=== PATIENT | male | born 1950 | race Caucasian/White ===

== ENCOUNTER → 2018-05-29 09:06 | Outpatient (BNVA) | payer MEDICARE, OTHER, SELFPAY | PROVIDERS: Visit Provider Orthopaedic Surgery | DX: M16.11 Unilateral primary osteoarthritis, right hip (principal); M25.551 Pain in right hip; Z96.651 Presence of right artificial knee joint; I10 Essential (primary) hypertension | CPT/HCPCS: 99203; 99242 ==

== ENCOUNTER 2018-09-25 08:14 | Outpatient (CLI) | payer MEDICARE, OTHER, SELFPAY ==
[2018-09-25 10:34] LABS: Abs Immature Grans 0.01 k/cumm (0.0-0.09); Absolute Basophil Count 0.05 k/cumm (0.0-0.2); Absolute Eosinophil Count 0.23 k/cumm (0.0-0.7); Absolute Lymphocyte Count 1.59 k/cumm (1.2-3.4); Absolute Monocyte Count 0.64 k/cumm (0.11-0.7); Absolute Neutrophil Count 3.97 k/cumm (1.2-6.7); Basophils % 0.8; Eosinophils % 3.5; HCT 41.6 % (40.0-50.0); HGB 13.8 g/dL (13.5-17.5); Immature Grans % 0.2; Lymphocytes % 24.5; Mean Corp. HGB Concentration 33.2 g/dL (32.0-36.0); Mean Corpuscular Hemoglobin 31.7 pg (27.0-33.0); Mean Corpuscular Volume 95.4 fL (80-95); Mean Platelet Volume 10.5 fL (8.0-11.0); Monocytes % 9.9; Neutrophils % 61.1; Platelet Count 322 x1000/uL (130-400); RBC 4.36 m/cumm (4.50-6.00); RBC Distribution Width 14.4 % (11.8-14.1); White Blood Cell Count 6.49 k/cumm (4.4-10.8)
== END 2018-09-25 08:34 ==
PROVIDERS: PCP Internal Medicine; Visit Provider Orthopaedic Surgery
DX: M25.551 Pain in right hip (principal); M16.11 Unilateral primary osteoarthritis, right hip; Z01.818 Encounter for other preprocedural examination
CPT/HCPCS: 86850; 86900; 86901; 85025

== ENCOUNTER 2018-09-30 06:13 | Inpatient (IN) | payer MEDICARE, OTHER, SELFPAY ==
--- NOTE | 2018-09-26 15:23 | W.PREOPHP ---
Date of service: 09/25/18 Assessment and Plan (1) Degenerative joint disease of right hip: Current visit: Yes Status: Acute right total hip arthroplasty the anatomy , operative procedure, and possible postop complications which we expect to be none are reviewed as well as measures to eliminate any complication chance are reviewed. all questions are answered to the satisfaction of the patient.typical postop course is also reviewed. Qualifiers: Osteoarthritis type: primary Qualified Code(s): M16.11 - Unilateral primary osteoarthritis, right hip History of Present Illness Narrative: shiv is a 68-year-old male who relates over a 1 year history of achy discomfort in his right posterior buttocks and groin with difficulty putting on his socks and shoes and inability to clip his toenails along with an episodic limp and sleep difficulty that has escalated over the past several months. He has had an x-ray done over at [facility] which were remarkable for advanced OA with loss of femoral head acetabular joint space along with periarticular osteophytes. He had femoral head cystic changes and subchondral sclerotic changes. He was seen in the office by Dr. Ahn who discussed with Shiv the only solution for long-term pain relief was a total hip replacement. In the interim from Shiv's initial Dr. Ahn visit he developed right leg pain and numbness prompting a referral down to Dr. Pelaez in [facility] where back surgery was done consisting to what sounds like a back fusion with improvement in his leg pain but persistence of the plantar numbness and tingling. Pertinent Surgical Information Denies previous medical history of: stroke, TIA, [place], use of sublingual nitroglycerin, seizures, diabetes, thyroid disease, sleep apnea, liver disease, hepatitis, hematologic disorders Denies previous complications from surgery or anesthesic agents with respect to high fever, prolonged vomiting and difficulty waking up Review of Systems Review of Systems All systems reviewed & are unremarkable except as noted in HPI and below Constitutional Reports system reviewed and no additional complaints, except as docu Eyes Reports system reviewed and no additional complaints, except as docu and Reports other Gastrointestinal Reports system reviewed and no additional complaints, except as docu Genitourinary Reports urinary frequency Comments: secondary to diurectic use Musculoskeletal Reports as per HPI Neurologic Reports as per HPI Psychiatric Reports system reviewed and no additional complaints, except as docu PFSH Medical History Degenerative joint disease of right hip (Acute) History of gastroesophageal reflux (GERD) (Chronic) Hypertension (Chronic) Surgical History History of tonsillectomy and adenoidectomy (Resolved) H/O lumbosacral spine surgery (Resolved) Hx of appendectomy (Resolved) History of total right knee replacement (TKR) (Inactive) Social History adopted: No caregiver/support person: No foster care: No household members: none marital status: single lives independently: Yes alf: No current occupational status: retired current occupational exposures/hazards: No pets and animals: No Smoking/Tobacco Use Status: Never Meds Home Medications Medication Instructions Recorded Confirmed Type amlodipine 5 mg tablet 5 mg PO DAILY 05/29/18 09/25/18 History hydrochlorothiazide 25 mg tablet 25 mg PO DAILY 05/29/18 09/25/18 History lisinopril 20 mg tablet 20 mg PO DAILY 05/29/18 09/25/18 History omeprazole 40 mg capsule,delayed 40 mg PO DAILY 05/29/18 09/25/18 History release Cbd 50 ml PO DAILY 09/25/18 History Allergies Allergy/AdvReac Type Severity Reaction Status Date / Time No Known Allergies Allergy Verified 05/29/18 09:19 Exam Const General: cooperative HENMA Throat: posterior oropharynx normal Eyes General: appearance normal, both eyes and all related structures Conjunctivae: conjunctivae normal Sclera: sclerae normal Neck Neck: no JVD Carotids: normal carotid upstroke and no bruits Resp Effort & Inspection: normal respiratory effort and able to speak in complete sentences Auscultation: clear to auscultation bilaterally, no rales, no rhonchi and no wheezes Cardio Rate: regular rate Heart Sounds: S1 normal, S2 normal and no murmurs Bruits: no abdominal aortic bruits Pulses: normal peripheral pulses Other: No pulsatile mass noted with palpation over the abdominal aorta GI Palpation: soft and no hepatosplenomegaly Auscultation: normal bowel sounds General: No CVA tenderness Extrem General: no pedal edema Other: Normal sensation to light touch No web space cracks or splits noted hip flexion few degrees shy of 90 degrees with a external rotation contracture. abduction very limited before pelvic rocking occurs Results Labs cbc normal with h and h 13.8/41.6 and normal platelets at 322k
--- NOTE | 2018-09-26 16:47 | HPE_ITS ---
Date of service: 09/25/18 Assessment and Plan (1) Degenerative joint disease of right hip: Current visit: Yes Status: Acute right total hip arthroplasty the anatomy , operative procedure, and possible postop complications which we expect to be none are reviewed as well as measures to eliminate any complication chance are reviewed. all questions are answered to the satisfaction of the patient.typical postop course is also reviewed. Qualifiers: Osteoarthritis type: primary Qualified Code(s): M16.11 - Unilateral primary osteoarthritis, right hip History of Present Illness Narrative: shiv is a 68-year-old male who relates over a 1 year history of achy discomfort in his right posterior buttocks and groin with difficulty putting on his socks and shoes and inability to clip his toenails along with an episodic limp and sleep difficulty that has escalated over the past several months. He has had an x-ray done over at [facility] which were remarkable for advanced OA with loss of femoral head acetabular joint space along with periarticular osteophytes. He had femoral head cystic changes and subchondral sclerotic changes. He was seen in the office by Dr. Ahn who discussed with Shiv the only solution for long-term pain relief was a total hip replacement. In the interim from Shiv's initial Dr. Ahn visit he developed right leg pain and numbness prompting a referral down to Dr. Pelaez in [facility] where back surgery was done consisting to what sounds like a back fusion with improvement in his leg pain but persistence of the plantar numbness and tingling. Pertinent Surgical Information Denies previous medical history of: stroke, TIA, [place], use of sublingual nitroglycerin, seizures, diabetes, thyroid disease, sleep apnea, liver disease, hepatitis, hematologic disorders Denies previous complications from surgery or anesthesic agents with respect to high fever, prolonged vomiting and difficulty waking up Review of Systems Review of Systems All systems reviewed & are unremarkable except as noted in HPI and below Constitutional Reports system reviewed and no additional complaints, except as docu Eyes Reports system reviewed and no additional complaints, except as docu and Reports other Gastrointestinal Reports system reviewed and no additional complaints, except as docu Genitourinary Reports urinary frequency Comments: secondary to diurectic use Musculoskeletal Reports as per HPI Neurologic Reports as per HPI Psychiatric Reports system reviewed and no additional complaints, except as docu PFSH Medical History Degenerative joint disease of right hip (Acute) History of gastroesophageal reflux (GERD) (Chronic) Hypertension (Chronic) Surgical History History of tonsillectomy and adenoidectomy (Resolved) H/O lumbosacral spine surgery (Resolved) Hx of appendectomy (Resolved) History of total right knee replacement (TKR) (Inactive) Social History adopted: No caregiver/support person: No foster care: No household members: none marital status: single lives independently: Yes long term: No current occupational status: retired current occupational exposures/hazards: No pets and animals: No Smoking/Tobacco Use Status: Never Meds Home Medications Medication Instructions Recorded Confirmed Type amlodipine 5 mg tablet 5 mg PO DAILY 05/29/18 09/25/18 History hydrochlorothiazide 25 mg tablet 25 mg PO DAILY 05/29/18 09/25/18 History lisinopril 20 mg tablet 20 mg PO DAILY 05/29/18 09/25/18 History omeprazole 40 mg capsule,delayed 40 mg PO DAILY 05/29/18 09/25/18 History release Cbd 50 ml PO DAILY 09/25/18 History Allergies Allergy/AdvReac Type Severity Reaction Status Date / Time No Known Allergies Allergy Verified 05/29/18 09:19 Exam Const General: cooperative HENMD Throat: posterior oropharynx normal Eyes General: appearance normal, both eyes and all related structures Conjunctivae: conjunctivae normal Sclera: sclerae normal Neck Neck: no JVD Carotids: normal carotid upstroke and no bruits Resp Effort & Inspection: normal respiratory effort and able to speak in complete sentences Auscultation: clear to auscultation bilaterally, no rales, no rhonchi and no wheezes Cardio Rate: regular rate Heart Sounds: S1 normal, S2 normal and no murmurs Bruits: no abdominal aortic bruits Pulses: normal peripheral pulses Other: No pulsatile mass noted with palpation over the abdominal aorta GI Palpation: soft and no hepatosplenomegaly Auscultation: normal bowel sounds General: No CVA tenderness Extrem General: no pedal edema Other: Normal sensation to light touch No web space cracks or splits noted hip flexion few degrees shy of 90 degrees with a external rotation contracture. abduction very limited before pelvic rocking occurs Results Labs cbc normal with h and h 13.8/41.6 and normal platelets at 322k
[2018-09-30] VITALS (14 sets, daily range): BP systolic 101–137; BP diastolic 62–90; PULSE 53–68; RESP 13–29; TEMP 36–36.7; O2SAT 95–98
[2018-09-30] MEDS: Lactated Ringers 1,000 ML 80 ML IV ×2 (06:45→11:02)
--- NOTE | 2018-09-30 07:22 | DI.RAD_ITS ---
SYMPTOM/DIAGNOSIS: DJD RIGHT HIP, PORTABLE IN OR. PORTABLE PELVIS: The exam was performed intraoperatively. Hard copy image shows placement of components of a right hip prosthesis.
[2018-09-30] MEDS: fentaNYL 100 MCG/2 ML VIAL IVP ×2 (10:20→10:38)
--- NOTE | 2018-09-30 10:20 | DI.RAD_ITS ---
SYMPTOM/DIAGNOSIS: CHECK POSITION OF THR COMPONENTS IN E.R. PORTABLE PELVIS: Comparison is made with the exam performed earlier the same day. The patient is status post placement of a total right hip prosthesis. The components appear well aligned. Skin nataliia are seen.
[2018-09-30] MEDS: HYDROmorphone 2 MG/ML VIAL IVP ×3 (10:30→10:55)
[2018-09-30] MEDS: oxyCODONE-CR 10 MG TABCR PO ×2 (11:28→23:49)
[2018-09-30] MEDS: Acetaminophen 325 MG TAB 650 MG PO ×2 (11:28→16:18)
[2018-09-30] MEDS: HYDROcodone 5/Acetaminophen 325 TAB PO ×2 (11:50→18:39)
[2018-09-30] MEDS: POTASSIUM CHLORIDE/0.9% NACL 1,000 ML 125 MEQ IV (12:49)
[2018-09-30] MEDS: Docusate Sodium 100 MG CAP PO ×2 (13:11→19:30)
[2018-09-30] MEDS: Ketorolac 30 MG/ML VIAL IVP ×2 (13:11→19:26)
--- NOTE | 2018-09-30 16:01 | PT.INIE ---
Date of service: 09/30/18 Time of Service: 15:30 PT Notes Inpatient Physical Therapy Evaluation Date: 09/30/18 Referring Doctor: Dr. Ahn PT Orders: PT CONSULT: mobilize post-op right SHEA. Get OOB ambulating in room this afternoon. WBAT RLE. Precautions: Fall, posterior hip precautions Patient Profile/Admitting Diagnosis: Patient admitted 09/30/2018 after right SHEA performed this morning. PMHX: Recent spinal surgery (06/2018) with persistent paresthesias in bilateral feet; status post right TKR Social History/Home Situation: Patient lives independently in a private home in [place], [place]. He plans to stay with a friend here in [facility] while he rehabilitates. States that his friend has 12 steps to enter the home, then lives on a single level. He reports that he utilized a straight cane at baseline. Equipment Owned/DME: Straight cane Subjective: Giovany states that he is quite nervous about getting up out of bed. States that he feels groggy, and is unsure how he is going to be able to move given the recent hip replacement on top of his chronic issues. Objective: General Observation: Resting in bed with IV in right upper extremity, Anderson catheter Mental Status: A and O x3 Pain: Well managed ROM: Right Upper Extremity: WFL Left Upper Extremity: WFL Right Lower Extremity: Hip flexion functionally allows 80 degrees, otherwise not assessed. Knee motion allows at least 0-90 degrees. Left Lower Extremity: WFL Strength: Right Upper Extremity: Shoulder flexion 4+/5. Triceps 4+/5. Left Upper Extremity: Shoulder flexion 4+/5. Triceps 4+/5. Right Lower Extremity: Quads 3/5. Ankle dorsiflexion 5/5. EHL 5/5. Left Lower Extremity: Quads 5/5. Ankle dorsiflexion 5/5. EHL 5/5. Sensation: Intact to light touch through the plantar aspect Bed Mobility/Transfers: Supine to sit: Min assist with HOB at 30 degrees Sit to supine: Supervision with HOB at 30 degrees Sit to stand: Min assist Stand to sit: Min assist Gait: Patient ambulates 5 feet x2 with FW W, WBAT, CG. Balance: Static Sitting: Good Dynamic Sitting: Good Static Standing: Fair Dynamic Standing:Fair Special Tests: Mobility Limitations Standardized Measure [facility]-P[facility] 6 clicks Basic Mobility Inpatient Short Form: Raw Score: 17 standardized Score: 42.13 CMS Score: 51% CMS Modifier: CK Informed Consent/Education: Patient instructed in purpose of PT consult and plan of care. Assessment: Patient is a 68 year old male referred to physical therapy services with the diagnosis of 1 days status post right SHEA. Patient presents with clinical signs and symptoms consistent with postoperative status, as demonstrated by the following impairment level findings: 1. Decreased right lower extremity range of motion 2. Decreased right lower extremity strength 3. Decreased activity tolerance 4. Range of motion restrictions based on postoperative precautions Impairments are contributing to the following functional limitations: 1. Decreased activity tolerance 2. Decreased independence with bed mobility 3. Decreased independence with transfers 4. Unable to manage stairs 5. Unable to manage community distance ambulation [facility] score 51% deficit. Patient is assessed as a Moderate 32962 complexity based on the following: History: Patient is a 68-year-old male 1 day postop right SHEA. His condition is impacted by chronic issues including bilateral knee OA, status post right TKA; recent spinal surgery with bilateral lower extremity paresthesias; [place] Examination: Functional limitations as noted above Presentation: Evolving Decision Making: Moderate complexity Goals: Goals X1 week 1. Supine-Sit: Supervision 2. Sit-Supine : Supervision 3. Sit-Stand : Supervision 4. Stand-Sit: Supervision 5. Bed-Chair : Supervision with FWW 6. Chair-Bed: Supervision with FWW 7. Gait : Supervision with FWW x 50' 8. Stairs : Patient able to a send and descend 12 steps with bilateral upper extremity support to rail and supervision only Plan of Care/Treatment Plan: 1-2x/day, 7 days/week x 1 week. Plan of care has been reviewed with the [facility] providing the service under Physical Therapy direction. Initiate Physical Therapy intervention for strengthening, bed mobility, transfers, gait, stairs, balance training, use of assistive device. DISCHARGE RECOMMENDATIONS: Home with assistance from friend, will require FWW at time of discharge TREATMENT CODE/TIME: 35 minutes (78053) G Codes in the area mobility of walking and moving around: current status [id number] CK; projected status GP [id number]. Discharge status (if discharging) GP [id number] CK.
--- NOTE | 2018-09-30 16:11 | IN_ITS ---
Date of service: 09/30/18 Time of Service: 15:30 PT Notes Inpatient Physical Therapy Evaluation Date: 09/30/18 Referring Doctor: Dr. Ahn PT Orders: PT CONSULT: mobilize post-op right SHEA. Get OOB ambulating in room this afternoon. WBAT RLE. Precautions: Fall, posterior hip precautions Patient Profile/Admitting Diagnosis: Patient admitted 09/30/2018 after right SHEA performed this morning. PMHX: Recent spinal surgery (06/2018) with persistent paresthesias in bilateral feet; status post right TKR Social History/Home Situation: Patient lives independently in a private home in [place], [place]. He plans to stay with a friend here in [facility] while he rehabilitates. States that his friend has 12 steps to enter the home, then lives on a single level. He reports that he utilized a straight cane at baseline. Equipment Owned/DME: Straight cane Subjective: Giovany states that he is quite nervous about getting up out of bed. States that he feels groggy, and is unsure how he is going to be able to move given the recent hip replacement on top of his chronic issues. Objective: General Observation: Resting in bed with IV in right upper extremity, Anderson catheter Mental Status: A and O x3 Pain: Well managed ROM: Right Upper Extremity: WFL Left Upper Extremity: WFL Right Lower Extremity: Hip flexion functionally allows 80 degrees, otherwise not assessed. Knee motion allows at least 0-90 degrees. Left Lower Extremity: WFL Strength: Right Upper Extremity: Shoulder flexion 4+/5. Triceps 4+/5. Left Upper Extremity: Shoulder flexion 4+/5. Triceps 4+/5. Right Lower Extremity: Quads 3/5. Ankle dorsiflexion 5/5. EHL 5/5. Left Lower Extremity: Quads 5/5. Ankle dorsiflexion 5/5. EHL 5/5. Sensation: Intact to light touch through the plantar aspect Bed Mobility/Transfers: Supine to sit: Min assist with HOB at 30 degrees Sit to supine: Supervision with HOB at 30 degrees Sit to stand: Min assist Stand to sit: Min assist Gait: Patient ambulates 5 feet x2 with FW W, WBAT, CG. Balance: Static Sitting: Good Dynamic Sitting: Good Static Standing: Fair Dynamic Standing:Fair Special Tests: Mobility Limitations Standardized Measure [facility]-PAC 6 clicks Basic Mobility Inpatient Short Form: Raw Score: 17 standardized Score: 42.13 CMS Score: 51% CMS Modifier: CK Informed Consent/Education: Patient instructed in purpose of PT consult and plan of care. Assessment: Patient is a 68 year old male referred to physical therapy services with the diagnosis of 1 days status post right SHEA. Patient presents with clinical signs and symptoms consistent with postoperative status, as demonstrated by the following impairment level findings: 1. Decreased right lower extremity range of motion 2. Decreased right lower extremity strength 3. Decreased activity tolerance 4. Range of motion restrictions based on postoperative precautions Impairments are contributing to the following functional limitations: 1. Decreased activity tolerance 2. Decreased independence with bed mobility 3. Decreased independence with transfers 4. Unable to manage stairs 5. Unable to manage community distance ambulation [facility] score 51% deficit. Patient is assessed as a Moderate 28416 complexity based on the following: History: Patient is a 68-year-old male 1 day postop right SHEA. His condition is impacted by chronic issues including bilateral knee OA, status post right TKA; recent spinal surgery with bilateral lower extremity paresthesias; [place] Examination: Functional limitations as noted above Presentation: Evolving Decision Making: Moderate complexity Goals: Goals X1 week 1. Supine-Sit: Supervision 2. Sit-Supine : Supervision 3. Sit-Stand : Supervision 4. Stand-Sit: Supervision 5. Bed-Chair : Supervision with FWW 6. Chair-Bed: Supervision with FWW 7. Gait : Supervision with FWW x 50' 8. Stairs : Patient able to a send and descend 12 steps with bilateral upper extremity support to rail and supervision only Plan of Care/Treatment Plan: 1-2x/day, 7 days/week x 1 week. Plan of care has been reviewed with the [facility] providing the service under Physical Therapy direction. Initiate Physical Therapy intervention for strengthening, bed mobility, transfers, gait, stairs, balance training, use of assistive device. DISCHARGE RECOMMENDATIONS: Home with assistance from friend, will require FWW at time of discharge TREATMENT CODE/TIME: 35 minutes (50146) G Codes in the area mobility of walking and moving around: current status [id number] CK; projected status GP [id number]. Discharge status (if discharging) GP [id number] CK.
--- NOTE | 2018-09-30 17:08 | ROE_ITS ---
DATE OF PROCEDURE: September 30, 2018 PREOPERATIVE DIAGNOSIS: Osteoarthritis right hip. POSTOPERATIVE DIAGNOSIS: Osteoarthritis right hip. PROCEDURE: Right total hip replacement. COMPONENTS USED: A size 5 DePuy high-offset stem and a 56-mm outside diameter acetabular shell. The prosthetic femoral head was 36-mm diameter, 8.5-mm neck length, ceramic. The liner was 56 x 36 mm. All components were cemented. SURGEON: Clarence Ahn M.D. LIFELINE REPRESENTATIVES: Sigifredo Gonzales PA-C ANESTHESIA: General, Alireza Patel CRNA INDICATIONS: This is a 68-year-old white male with end-stage osteoarthritis of his right hip. This pain has become disabling within the last year or so. I initially saw him several months ago and rec ommended total hip replacement for relief of pain. He had had some ensuing medical problems that del ayed him from seeking surgery until now. He is extremely limited in his mobility now because of the pain in his right hip. The risks and complications of the procedure have been explained to him in de tail preoperatively and he would like to proceed with total hip arthroplasty to alleviate his pain an d restore some of his previous ambulatory abilities. PROCEDURE: The patient was taken to the Operating Room on 09/30/18. He was placed supine on the oper ating table and a general anesthetic was administered. He was turned to the right lateral position o n the table and the position was maintained with a pneumatic beanbag. The right hip was prepped and draped free in the usual sterile fashion. A standard posterolateral incision was made centered over the greater trochanter. The incision was carried down through the skin and subcu to the iliotibial b and and gluteus fascia. The iliotibial band and gluteus fascia were incised in line with the skin in cision. A Charnley self-retaining retractor was inserted. An incision was made in the hip joint cap kenzie starting as far anteriorly as possible. The incision was then carried down distally with electr ocautery including the piriformis tendon. A posterior capsular flap was carefully preserved. Hemost asis was obtained with electrocautery. The femoral head was dislocated. The femoral head was marked ly deformed, with very large osteophytes along the femoral head and neck junction as well. The femor al neck was resected at an appropriate angle and level using a femoral neck resection guide and an os cillating saw. An anterior capsulectomy was performed. There was a large osteophyte on the anterior acetabular rim and this was excised. This osteophyte was mostly extracapsular. Acetabular retracto rs were inserted. The acetabulum was then serial reamed with hemispheric reamers to a diameter of 56 mm. A 56-mm acetabular shell was then impacted into the prepared acetabulum. An excellent press fi t was obtained. The press fit was supplemented by one screw through the shell. A trial liner was in serted and screwed into place. The acetabular rim was then assessed and osteophytes posteroinferiorl y were removed with osteotome, mallet, and a rongeur. The femoral canal was serially reamed with straight reamers up to a size 5. I then used a size 6/7 s traight reamer and was not able to bury it the last 2 inches. I then began broaching with serial bro aches and found there was an excellent fit with a size 5 broach. I did not think a 6 could be insert ed. I left the [address], put a trial 8.5 femoral head with a high-offset neck, reduced the femoral component into the acetabulum, and took an intraoperative AP x-ray. The intraoperative AP x- ray showed excellent cup position. It showed that the size 5 stem would provide excellent fit and fi ll and limb lengths were almost equal with a +8.5 neck length. The trial components were then disloc ated from the acetabulum and the trial broach was removed. The trial liner was removed. The manhole cover was placed in the acetabular shell. The wound was irrigated with pulsed irrigation lavage wit h saline solution and the acetabular liner 56 x 36 was then properly positioned in the acetabular she ll and locked into place using an impactor and mallet. The [place] porous-coated size 5 DePuy stem was th en inserted in proper rotational alignment and impacted until fully seated. An 8.5 36-mm ceramic fem oral head was then placed on the trunnion of the stem and locked into place with an impactor and mall et. The femoral component was reduced into the acetabulum. Range of motion and stability were check ed. The hip was stable in 90 degrees of flexion and 75 degrees or so of internal rotation. The hip was stable in external rotation and extension and there was minimal shuck with longitudinal traction in extension. The right thigh was abducted on a Oliva stand and closure was begun. Two grams of tranexamic acid in 150 cc of saline solution was instilled into the wound and allowed to stay in place for over a minute before suctioning. Betadine and saline solution was then instilled into the wound and allowed to stay for a minute before suctioning. The wound margins were infiltrate d with 0.5% Marcaine with epinephrine solution. Any obvious bleeders were cauterized. The posterior capsular flap that was developed was then attached to the posterior edge of the greater trochanter b y passing #2 FiberWire sutures to the edge of the flap and then passing them through three drill hole s in the posterior edge of the greater tuberosity. The sutures were then tied tightly over bone, sec uring the posterior flap to the posterior trochanter. The iliotibial band and gluteus fascia were ap proximated with interrupted [id number]-op-[id number] sutures of #1 Vicryl suture material. The subcu was appr oximated with interrupted #2-0 Vicryl sutures and the skin edges were approximated with skin nataliia. Sterile dressings were applied of Xeroform gauze, sterile gauze 4x4s, ABD pads, and taped with foam elastic tape. The patient was turned supine and an abduction pillow was placed between his legs. T he patient's anesthesia was reversed without complications. Estimated blood loss was 250-300 cc. The patient was discharge to the Recovery Room in good condition.
[2018-09-30] MEDS: POTASSIUM CHLORIDE/0.9% NACL 1,000 ML 60 MEQ IV (23:49)
[2018-10-01] VITALS (9 sets, daily range): BP systolic 105–138; BP diastolic 68–83; PULSE 46–103; RESP 12–18; TEMP 36.2–37.5; O2SAT 94–100
[2018-10-01] MEDS: Acetaminophen 325 MG TAB 650 MG PO ×2 (01:32→20:53)
[2018-10-01] MEDS: Ketorolac 30 MG/ML VIAL IVP ×4 (01:32→19:02)
[2018-10-01 07:21] LABS: HCT 32.1 % (40.0-50.0); HGB 10.5 g/dL (13.5-17.5); Mean Corp. HGB Concentration 32.7 g/dL (32.0-36.0); Mean Corpuscular Hemoglobin 31.9 pg (27.0-33.0); Mean Corpuscular Volume 97.6 fL (80-95); Mean Platelet Volume 10.2 fL (8.0-11.0); Platelet Count 231 x1000/uL (130-400); RBC 3.29 m/cumm (4.50-6.00); RBC Distribution Width 13.8 % (11.8-14.1)
[2018-10-01] MEDS: Pantoprazole 40 MG TABCR PO (08:39)
[2018-10-01] MEDS: Docusate Sodium 100 MG CAP PO ×3 (08:40→19:04)
[2018-10-01] MEDS: amLODIPine 5 MG TAB PO (08:40)
[2018-10-01] MEDS: Multivitamin w/Minerals TAB 1 TAB PO (08:41)
[2018-10-01] MEDS: Normal Saline Flush 10 ML SYR IV ×3 (08:42→22:30)
[2018-10-01] MEDS: HYDROcodone 5/Acetaminophen 325 TAB PO ×3 (08:54→16:50)
[2018-10-01] MEDS: Mylanta Suspension 30 ML CUP PO (09:24)
[2018-10-01] MEDS: Enoxaparin 40 MG/0.4 ML SYR SC (09:25)
[2018-10-01] MEDS: Lisinopril 20 MG TAB PO (09:28)
[2018-10-01] MEDS: Hydrochlorothiazide 25 MG TAB PO (09:28)
--- NOTE | 2018-10-01 10:01 | PDOC.CMIN ---
- If Service Date Differs Date of service: 10/01/18 Time of Service: 10:01 Care Management Initial Assess REASON FOR HOSPITALIZATION:: Degenerative Joint Disease of (R) Hip PAST MEDICAL HISTORY/PAST SURGICAL HISTORY:: Degenerative joint disease of right hip (Acute). History of gastroesophageal reflux (GERD) (Chronic). Hypertension (Chronic). History of tonsillectomy and adenoidectomy (Resolved). H/O lumbosacral spine surgery (Resolved). Hx of appendectomy (Resolved). History of total right knee replacement (TKR) (Inactive) PREVIOUS FUNCTIONAL STATUS/SOCIAL/FAMILY SUPPORTS:: Giovany resides alone in [facility]. He states that he has friends locally whom are supportive. 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 He is independent at baseline and able to manage ADL's CURRENT FUNCTIONAL STATUS:: Currently Giovany is lying in bed watching a movie when this technical report writer visits. He is pleasant and receptive to discussion. ADVANCE DIRECTIVES:: None on file Has patient been provided with information about the portal?: Yes Did the patient sign up for the portal?: No CODE STATUS:: Full Code INSURANCE COVERAGE / FINANCIAL ISSUES:: Medicare, BCBS, [facility] indemnity CURRENT HOME/COMMUNITY SERVICES/EQUIPMENT:: Currently Giovany receives no services in the community. He states that he has a FWW, and his friends are obtaining a shower chair. PRIMARY CARE PHYSICIAN:: Mehran Marquez POTENTIAL DISCHARGE NEEDS:: F/U appointment with Dr. Ahn PATIENT/FAMILY EDUCATION NEEDS:: Review DC instructions, any limitations, and ongoing DC planning discussion. Discuss 'Ask Me Three' ANTICIPATED BARRIERS TO DISCHARGE:: None identified at this time TRANSPORTATION:: Via private vehicle with friends PLAN:: Giovany will return home with no anticipated services.He will F/U with Dr. Ahn and plan of care as prescribed. Giovany's friend to transport when ready.
--- NOTE | 2018-10-01 10:07 | INITIAL_ITS ---
- If Service Date Differs Date of service: 10/01/18 Time of Service: 10:01 Care Management Initial Assess REASON FOR HOSPITALIZATION:: Degenerative Joint Disease of (R) Hip PAST MEDICAL HISTORY/PAST SURGICAL HISTORY:: Degenerative joint disease of right hip (Acute). History of gastroesophageal reflux (GERD) (Chronic). Hypertension (Chronic). History of tonsillectomy and adenoidectomy (Resolved). H/O lumbosacral spine surgery (Resolved). Hx of appendectomy (Resolved). History of total right knee replacement (TKR) (Inactive) PREVIOUS FUNCTIONAL STATUS/SOCIAL/FAMILY SUPPORTS:: Giovany resides alone in [facility]. He states that he has friends locally whom are supportive. 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 He is independent at baseline and able to manage ADL's CURRENT FUNCTIONAL STATUS:: Currently Giovany is lying in bed watching a movie when this financial underwriter visits. He is pleasant and receptive to discussion. ADVANCE DIRECTIVES:: None on file Has patient been provided with information about the portal?: Yes Did the patient sign up for the portal?: No CODE STATUS:: Full Code INSURANCE COVERAGE / FINANCIAL ISSUES:: Medicare, BCBS, [facility] indemnity CURRENT HOME/COMMUNITY SERVICES/EQUIPMENT:: Currently Giovany receives no services in the community. He states that he has a FWW, and his friends are obtaining a shower chair. PRIMARY CARE PHYSICIAN:: Mehran Marquez POTENTIAL DISCHARGE NEEDS:: F/U appointment with Dr. Ahn PATIENT/FAMILY EDUCATION NEEDS:: Review DC instructions, any limitations, and ongoing DC planning discussion. Discuss 'Ask Me Three' ANTICIPATED BARRIERS TO DISCHARGE:: None identified at this time TRANSPORTATION:: Via private vehicle with friends PLAN:: Giovany will return home with no anticipated services.He will F/U with Dr. Ahn and plan of care as prescribed. Giovany's friend to transport when ready.
--- NOTE | 2018-10-01 10:50 | PTTR_ITS ---
Date of service: 10/01/18 Time of Service: 10:50 PT Notes Inpatient Physical Therapy Treatment Note [facility] Date: 10/01/18 PRECAUTIONS: Fall, WBAT on R, R Posterior SHEA Prec SUBJECTIVE: Shiv states that he is feeling good this morning, he believes that he is ready to return to home today. OBJECTIVE: PAIN: No c/o pain BED MOBILITY/TRANSFERS Supine-sit: I with HOB flat Sit-stand: S Stand-sit: S GAIT Assistive Device: FWW Weight bearing: WBAT on R Assist: S Distance: 100' x2 Deviation: Step-through THEREX: Patient completed a LE strengthening and stabilization program, as per flow sheet. STAIRS: Up/down 9x4 and 6x6 using B rails and a step-to pattern with sup ervision and occasional cueing for sequence. ASSESSMENT: Patient tolerated session well demonstrating a steady step-through gait pattern with FWW support and supervision. He was able to tolerate stair training, requiring minimal cueing for sequence. He would benefit from continued gait training and strengthening for improved activity tolerance. PLAN: Continue with PT's POC TREATMENT CODE/TIME: 40 minutes; 18780, [id number] x2
--- NOTE | 2018-10-01 11:47 | INDS_ITS ---
Date of service: 10/01/18 Time of Service: 11:10 PT Notes Date: 10/01/18 Referring Doctor: Dr. Ahn PT Orders: PT CONSULT: mobilize post-op right SHEA. Get OOB ambulating in room this afternoon. WBAT RLE. Precautions: Fall, posterior hip precautions Treatment Dates: 09/30/18 - 10/01/18 Patient Profile/Admitting Diagnosis: Patient admitted 09/30/2018, s/p right SHEA. He's participated in 3 PT sessions over the past two days, making gains in functional mobility and safety sufficient to allow for safe return home with assistance from friends. PMHX: Recent spinal surgery (06/2018) with persistent paresthesias in bilateral feet; status post right TKR Social History/Home Situation: Patient lives independently in a private home in [place], [place]. He plans to stay with a friend here in [facility] while he rehabilitates. States that his friend has 12 steps to enter the home, then lives on a single level. He reports that he utilized a straight cane at baseline. Equipment Owned/DME: Straight cane, WW, associate civil engineer Subjective: Shiv states that he's feeling well. He worked with Jeanie Cueva PTA earlier this morning, and states he's feeling up to another session. Objective: General Observation: Resting in bed with IV in right upper extremity. Mental Status: A and O x3. Able to verbalize hip precautions. Pain: Well managed ROM: Right Upper Extremity: WFL Left Upper Extremity: WFL Right Lower Extremity: Hip flexion functionally allows 80 degrees, otherwise not assessed. Knee motion allows at least 0-90 degrees. Left Lower Extremity: WFL Strength: Right Upper Extremity: Shoulder flexion 4+/5. Triceps 4+/5. Left Upper Extremity: Shoulder flexion 4+/5. Triceps 4+/5. Right Lower Extremity: Quads 3/5. Ankle dorsiflexion 5/5. EHL 5/5. Left Lower Extremity: Quads 5/5. Ankle dorsiflexion 5/5. EHL 5/5. Bed Mobility/Transfers: Supine to sit: independent with HOB flat Sit to supine: independent with HOB flat Sit to stand: independent Stand to sit: independent Gait: Patient ambulates 120 feet with FW W, WBAT, supervision only. Stairs: Patient able to ascend and descend therapeutic stairs (6x2, 4x3) x6 with bilat UE support to rails and supervision only. Balance: Static Sitting: Good Dynamic Sitting: Good Static Standing: Good Dynamic Standing:Fair Treatment: Today's session consisted of re-evaluation followed by gait training and instruction in therex program. We reviewed patient's post-op packet, and he was instructed in a HEP as illustrated in packet (ankle pumps, quad sets, gluteal sets, hip AB and heel slides). He was able to complete each of these independently. He also toileted independently during session, with need for only minimal assistance for management of IV pole. Assessment: Patient is a 68 year old male referred to physical therapy services with the diagnosis of right hip OA, status post right SHEA. He's made significant gains in functional mobility, and is appropriate for discharge to friend's home. Goals: Goals X1 week 1. Supine-Sit: Supervision (MET) 2. Sit-Supine : Supervision(MET) 3. Sit-Stand : Supervision(MET) 4. Stand-Sit: Supervision(MET) 5. Bed-Chair : Supervision with FWW(MET) 6. Chair-Bed: Supervision with FWW(MET) 7. Gait : Supervision with FWW x 50'(MET) 8. Stairs : Patient able to a send and descend 12 steps with bilateral upper extremity support to rail and supervision only(MET) Plan of Care/Treatment Plan: D/C from PT in acute care setting. DISCHARGE RECOMMENDATIONS: Home with assistance from friend. No equipment needs. TREATMENT CODE/TIME: 25 minutes ([id number])
[2018-10-01] MEDS: oxyCODONE-CR 10 MG TABCR PO ×2 (14:10→23:38)
--- NOTE | 2018-10-01 16:00 | W.PM.PROGNOT ---
Date of Service Date of service: 10/01/18 Time of Service: 16:00 Assessment and Plan (1) Degenerative joint disease of right hip: Start date: 09/30/18 Start time: 08:02 Current visit: Yes Status: Acute Assessment: Stable postop day #1 right total hip replacement for osteoarthritis. I think he is really moving quite well but is not quite independent enough for home discharge. I think he will be ready by tomorrow. Plan: DC IVs after his last antibiotic dose this afternoon. Will change his dressing tomorrow a.m. If he has no problems we will discharge him tomorrow Qualifiers: Osteoarthritis type: primary Qualified Code(s): M16.11 - Unilateral primary osteoarthritis, right hip Subjective Interval history since last seen: He had a little difficulty sleeping last night because of discomfort. Today he feels great and his pain is well controlled. He has been able urinate since his Anderson was DC'd. He walked over the physical therapy room today. Exam Narrative Exam Narrative: He is afebrile vital signs are stable. Hemoglobin 10.5 g today. He is urinating since his Anderson was DC'd. He is eating and drinking well. Neurovascular examination of his right foot is completely normal. He is able to get out of bed with minimal assist at this time. He did walk to the PT room and back today. Objective Objective Clinical Data: Abnormal lab results 10/01/18 Range/Units 07:00 RBC 3.29 L (4.50-6.00) m/cumm Hgb 10.5 L (13.5-17.5) g/dL Hct 32.1 L (40.0-50.0) % MCV 97.6 H (80-95) fL Vital Signs Temperature 37.4 C 10/01/18 09:35 Temperature Source Tympanic 10/01/18 09:35 Pulse 57 L 10/01/18 09:35 Pulse Rhythm Regular 10/01/18 07:48 Respiratory Rate 16 10/01/18 09:35 Respiratory Effort 10/01/18 07:48 Respiratory Depth Normal 10/01/18 07:48 Respiratory Pattern Normal 10/01/18 07:48 Blood Pressure 138/81 10/01/18 09:35 Pulse Oximetry 96 10/01/18 09:35 Respiratory End-tidal CO2 35 09/30/18 11:07 Oxygen Delivery Method Room Air 10/01/18 09:35 Oxygen Flow Rate 0 10/01/18 09:35 Pain Level 5 10/01/18 14:19 Comment 09/30/18 11:29 Intake & Output 09/30/18 10/01/18 10/01/18 23:59 11:59 23:59 Intake Total 2000.75 / 3258.75 602 / 842 240 / 842 Output Total 250 / 625 350 / 350 Balance 1750.75 / 2633.75 252 / 492 240 / 492 Intake: IV 1200.75 / 2138.75 202 / 202 Oral 800 / 1120 400 / 640 240 / 640 Output: Urine 250 / 325 350 / 350 Other: Urine Color Dark Angelina Light Angelina Yellow Urine Appearance Clear Clear Clear Urine Odor Normal Comment pt voided in toilet, not in hat, not measured at this time. Voiding Methods Toilet Laboratory Results WBC 8.00 k/cumm (4.4-10.8) 10/01/18 07:00 RBC 3.29 m/cumm (4.50-6.00) L 10/01/18 07:00 Hgb 10.5 g/dL (13.5-17.5) L 10/01/18 07:00 Hct 32.1 % (40.0-50.0) L 10/01/18 07:00 MCV 97.6 fL (80-95) H 10/01/18 07:00 MCH 31.9 pg (27.0-33.0) 10/01/18 07:00 MCHC 32.7 g/dL (32.0-36.0) 10/01/18 07:00 RDW 13.8 % (11.8-14.1) 10/01/18 07:00 Plt Count 231 x1000/uL (130-400) 10/01/18 07:00 MPV 10.2 fL (8.0-11.0) 10/01/18 07:00
[2018-10-02] MEDS: Normal Saline Flush 10 ML SYR IV ×3 (01:48→08:10)
[2018-10-02] MEDS: Ketorolac 30 MG/ML VIAL IVP ×2 (01:48→08:09)
[2018-10-02 03:30] VITALS: BP 130/67; PULSE 66; RESP 18; TEMP 36.2; O2SAT 96
[2018-10-02] MEDS: HYDROcodone 5/Acetaminophen 325 TAB PO ×2 (03:35→09:41)
[2018-10-02 07:18] LABS: HCT 31.7 % (40.0-50.0); HGB 10.2 g/dL (13.5-17.5); Mean Corp. HGB Concentration 32.2 g/dL (32.0-36.0); Mean Corpuscular Hemoglobin 31.8 pg (27.0-33.0); Mean Corpuscular Volume 98.8 fL (80-95); Mean Platelet Volume 10.8 fL (8.0-11.0); Platelet Count 224 x1000/uL (130-400); RBC 3.21 m/cumm (4.50-6.00); RBC Distribution Width 13.7 % (11.8-14.1); White Blood Cell Count 7.54 k/cumm (4.4-10.8)
[2018-10-02 07:30] VITALS: BP 109/66; PULSE 57; RESP 18; TEMP 36.1; O2SAT 94
[2018-10-02] MEDS: Lisinopril 20 MG TAB PO (08:09)
[2018-10-02] MEDS: Hydrochlorothiazide 25 MG TAB PO (08:09)
[2018-10-02] MEDS: Pantoprazole 40 MG TABCR PO (08:09)
[2018-10-02] MEDS: amLODIPine 5 MG TAB PO (08:10)
[2018-10-02] MEDS: Multivitamin w/Minerals TAB 1 TAB PO (08:10)
[2018-10-02] MEDS: Docusate Sodium 100 MG CAP PO (08:10)
[2018-10-02] MEDS: Enoxaparin 40 MG/0.4 ML SYR SC (09:41)
[2018-10-02 11:37] VITALS: BP 109/66; PULSE 57; RESP 18; TEMP 36.1; O2SAT 94
--- NOTE | 2018-10-02 11:39 | W.PM.DS.N ---
Date of service: 10/02/18 Time of Service: 11:40 DS: Diagnosis Discharge Diagnosis (1) Degenerative joint disease of right hip: Status: Acute Discharge Plan Disposition Patient Disposition: HOME Condition: Good Discharge Details Reason For Visit: OA (R) HIP Admit Date/Time: 09/30/18 06:13 Admit Provider: Clarence Ahn Attending Provider: Clarence Ahn [facility] Hospital Course: The patient was taken to the OR on 09/30/18 where he underwent a R total hip replacement without complications. He was mobilized on the day of surgery. He progressed rapidly with his mobilization, achieving full independance by 10/02/18. He remained afebrile his entire course. He required minimal narcotics. Hgb on day 2 post-op was 10.2 g. On 10/02/18, I changed his hip dressing. The incision was clean and dry with mild bruising. I felt he had completed his acute care goals and was ready for discharge home. Home Meds and New Rx's Prescriptions: New ibuprofen 800 mg tablet 800 mg PO TID Qty: 90 RF: 0 hydrocodone-acetaminophen 5-325 mg tablet 1 tab PO Q6H PRN (Reason: pain) Qty: 20 RF: 0 Continued lisinopril 20 mg tablet 20 mg PO DAILY RF: 0 hydrochlorothiazide 25 mg tablet 25 mg PO DAILY RF: 0 amlodipine 5 mg tablet 5 mg PO DAILY RF: 0 omeprazole 40 mg capsule,delayed release(DR/EC) 40 mg PO DAILY RF: 0 Cbd 50 ml PO DAILY RF: 0 Discharge Instructions Additional Instructions: Walk every day as much as pain allows. Elevate R leg when sitting. Use walker, crutches or cane as long as you limp. Take one baby aspirin(81mg) twice/day for 30 days to prevent blood clots in your legs. Follow total hip precautions for 6 weeks. Take ibuprofen as prescribed until the prescription is finished. Take hydrocodone, if needed, for breakthru pain. May shower and get nataliia wet starting tomorrow. After showering, pat the nataliia dry and cover them with light gauze dressing so they don't catch on your pants. Return to 's office in 2 weeks for staple removal and wound check. Referrals: Clarence Ahn MD [ [facility] STAFF PHYSICIAN] - (f/u in 2 weeks) Activity:: Activity as Tolerated Equipment/Supplies:: Walker Diet:: As Tolerated Discharge Orders Discharge Orders: Discharge Order (Routine); Ordered 10/02/18 Ordered By: Clarence Ahn DS: Data Vitals/I&O Vitals and I&O: Vital Signs Temperature 36.1 C L 10/02/18 11:37 Temperature Source Tympanic 10/02/18 11:37 Pulse 57 L 10/02/18 11:37 Pulse Rhythm Regular 10/02/18 08:08 Respiratory Rate 18 10/02/18 11:37 Respiratory Effort Non-Labored 10/02/18 08:08 Respiratory Depth Normal 10/02/18 08:08 Respiratory Pattern Normal 10/02/18 08:08 Blood Pressure 109/66 10/02/18 11:37 Pulse Oximetry 94 L 10/02/18 11:37 Respiratory End-tidal CO2 35 09/30/18 11:07 Oxygen Delivery Method Room Air 10/02/18 11:37 Oxygen Flow Rate 0 10/02/18 11:37 Pain Level 5 10/02/18 09:41 Comment 10/02/18 03:30 Intake & Output 10/01/18 10/01/18 10/02/18 11:59 23:59 11:59 Intake Total 602 / 842 240 / 842 450 / 450 Output Total 350 / 850 500 / 850 200 / 200 Balance 252 / -8 -260 / -8 250 / 250 Intake: IV 202 / 202 Oral 400 / 640 240 / 640 450 / 450 Output: Urine 350 / 850 500 / 850 200 / 200 Other: Urine Color Light Angelina Yellow Yellow Urine Appearance Clear Clear Clear Urine Odor Normal Normal Comment pt voided in toilet, not in hat, not measured at this time. Voiding Methods Urinal Urinal Labs on day of discharge: Labs from last 24 hours 10/02/18 06:40 WBC 7.54 RBC 3.21 L Hgb 10.2 L Hct 31.7 L MCV 98.8 H MCH 31.8 MCHC 32.2 RDW 13.7 Plt Count 224 MPV 10.8 PFSH Medical History Degenerative joint disease of right hip (Acute) History of gastroesophageal reflux (GERD) (Chronic) Hypertension (Chronic) Surgical History History of tonsillectomy and adenoidectomy (Resolved) H/O lumbosacral spine surgery (Resolved) Hx of appendectomy (Resolved) History of total right knee replacement (TKR) (Inactive) Social History adopted: No caregiver/support person: No foster care: No household members: none lives independently: Yes snf: No current occupational status: retired current occupational exposures/hazards: No pets and animals: No Smoking/Tobacco Use Status: Never
--- NOTE | 2018-10-02 11:47 | DSE_ITS ---
Date of service: 10/02/18 Time of Service: 11:40 DS: Diagnosis Discharge Diagnosis (1) Degenerative joint disease of right hip: Status: Acute Discharge Plan Disposition Patient Disposition: HOME Condition: Good Discharge Details Reason For Visit: OA (R) HIP Admit Date/Time: 09/30/18 06:13 Admit Provider: Clarence Ahn Attending Provider: Clarence Ahn [facility] Course: The patient was taken to the OR on 09/30/18 where he underwent a R total hip replacement without complications. He was mobilized on the day of surgery. He progressed rapidly with his mobilization, achieving full independance by 10/02/18. He remained afebrile his entire course. He required minimal na rcotics. Hgb on day 2 post-op was 10.2 g. On 10/02/18, I changed his hip dressing. The incision was clean and dry with mild bruising. I felt he had completed his acute care goals and was ready for discharge home. Home Meds and New Rx's Prescriptions: New ibuprofen 800 mg tablet 800 mg PO TID Qty: 90 RF: 0 hydrocodone-acetaminophen 5-325 mg tablet 1 tab PO Q6H PRN (Reason: pain) Qty: 20 RF: 0 Continued lisinopril 20 mg tablet 20 mg PO DAILY RF: 0 hydrochlorothiazide 25 mg tablet 25 mg PO DAILY RF: 0 amlodipine 5 mg tablet 5 mg PO DAILY RF: 0 omeprazole 40 mg capsule,delayed release(DR/EC) 40 mg PO DAILY RF: 0 Cbd 50 ml PO DAILY RF: 0 Discharge Instructions Additional Instructions: Walk every day as much as pain allows. Elevate R leg when sitting. Use walker, crutches or cane as long as you limp. Take one baby aspirin(81mg) twice/day for 30 days to prevent blood clots in your legs. Follow total hip precautions for 6 weeks. Take ibuprofen as prescribed until the prescription is finished. Take hydrocodone, if needed, for breakthru pain. May shower and get nataliia wet starting tomorrow. After showering, pat the nataliia dry and cover them with light gauze dressing so they don't catch on your pants. Return to 's office in 2 weeks for staple removal and wound check. Referrals: Clarence Ahn MD [ [facility] STAFF PHYSICIAN] - (f/u in 2 weeks) Activity:: Activity as Tolerated Equipment/Supplies:: Walker Diet:: As Tolerated Discharge Orders Discharge Orders: Discharge Order (Routine); Ordered 10/02/18 Ordered By: Clarence Ahn DS: Data Vitals/I&O Vitals and I&O: Vital Signs Temperature 36.1 C L 10/02/18 11:37 Temperature Source Tympanic 10/02/18 11:37 Pulse 57 L 10/02/18 11:37 Pulse Rhythm Regular 10/02/18 08:08 Respiratory Rate 18 10/02/18 11:37 Respiratory Effort Non-Labored 10/02/18 08:08 Respiratory Depth Normal 10/02/18 08:08 Respiratory Pattern Normal 10/02/18 08:08 Blood Pressure 109/66 10/02/18 11:37 Pulse Oximetry 94 L 10/02/18 11:37 Respiratory End-tidal CO2 35 09/30/18 11:07 Oxygen Delivery Method Room Air 10/02/18 11:37 Oxygen Flow Rate 0 10/02/18 11:37 Pain Level 5 10/02/18 09:41 Comment 10/02/18 03:30 Intake & Output 10/01/18 10/01/18 10/02/18 11:59 23:59 11:59 Intake Total 602 / 842 240 / 842 450 / 450 Output Total 350 / 850 500 / 850 200 / 200 Balance 252 / -8 -260 / -8 250 / 250 Intake: IV 202 / 202 Oral 400 / 640 240 / 640 450 / 450 Output: Urine 350 / 850 500 / 850 200 / 200 Other: Urine Color Light Angelina Yellow Yellow Urine Appearance Clear Clear Clear Urine Odor Normal Normal Comment pt voided in toilet, not in hat, not measured at this time. Voiding Methods Urinal Urinal Labs on day of discharge: Labs from last 24 hours 10/02/18 06:40 WBC 7.54 RBC 3.21 L Hgb 10.2 L Hct 31.7 L MCV 98.8 H MCH 31.8 MCHC 32.2 RDW 13.7 Plt Count 224 MPV 10.8 PFSH Medical History Degenerative joint disease of right hip (Acute) History of gastroesophageal reflux (GERD) (Chronic) Hypertension (Chronic) Surgical History History of tonsillectomy and adenoidectomy (Resolved) H/O lumbosacral spine surgery (Resolved) Hx of appendectomy (Resolved) History of total right knee replacement (TKR) (Inactive) Social History adopted: No caregiver/support person: No foster care: No household members: none lives independently: Yes longterm: No current occupational status: retired current occupational exposures/hazards: No pets and animals: No Smoking/Tobacco Use Status: Never
[2018-10-02] MEDS: oxyCODONE-CR 10 MG TABCR PO (11:48)
--- NOTE | 2018-10-02 14:26 | PDOC.CMDIS ---
- If Service Date Differs Date of service: 10/02/18 Time of Service: 14:26 LACE Index Scoring Tool - Questions: Length of Stay (in days): 3 Acuity (Admit via E.D.?): No E.D. Visits: 0 - Answers: Total Score: 3 Risk of Readmission: Low Risk Care Management Discharge Reason for Hospitalization: Degenerative Joint Disease of (R) Hip Discharge Plan: Giovany will return home today with no services. He will be staying with his friend in [facility] while he recovers. Giovany will F/U with Dr. Ahn and plan of care as prescribed. Giovany's friend to transport when ready. Patient/Family Education Needs: Review DC instructions, any limitations, and discuss 'Ask me Three'
--- NOTE | 2018-10-02 14:30 | CMDISCH_ITS ---
- If Service Date Differs Date of service: 10/02/18 Time of Service: 14:26 LACE Index Scoring Tool - Questions: Length of Stay (in days): 3 Acuity (Admit via E.D.?): No E.D. Visits: 0 - Answers: Total Score: 3 Risk of Readmission: Low Risk Care Management Discharge Reason for Hospitalization: Degenerative Joint Disease of (R) Hip Discharge Plan: Giovany will return home today with no services. He will be staying with his friend in [facility] while he recovers. Giovany will F/U with Dr. Ahn and plan of care as prescribed. Giovany's friend to transport when ready. Patient/Family Education Needs: Review DC instructions, any limitations, and discuss 'Ask me Three'
== END 2018-10-02 13:44 | disposition home or self-care (01) | DRG 470 ==
LOC: PDS 07:38 → MS 10:25
PROVIDERS: Admitting Provider Orthopaedic Surgery; PCP Internal Medicine; Visit Provider Orthopaedic Surgery
PROC: 0SR9049 Replacement of Right Hip Joint with Ceramic on Polyethylene Synthetic Substitute, Cemented, Open Approach (ICD-10-PCS; CPT 27130; principal; 2018-09-30 07:30)
DX: M16.11 Unilateral primary osteoarthritis, right hip (principal); Z96.641 Presence of right artificial hip joint; I10 Essential (primary) hypertension; K21.9 Gastro-esophageal reflux disease without esophagitis
CPT/HCPCS: 27130; 36415; 85027; 97110; 97162; 97530; J1650; NC; 72170; J0690; J1100; J1885; J2250; J2405; J3010; L1686

== ENCOUNTER → 2018-10-08 14:29 | Outpatient (BNVA) | payer MEDICARE, OTHER, SELFPAY | PROVIDERS: PCP Internal Medicine; Referring Provider Internal Medicine; Visit Provider Orthopaedic Surgery | DX: Z47.1 Aftercare following joint replacement surgery (principal); Z96.641 Presence of right artificial hip joint ==

== ENCOUNTER → 2018-10-11 09:22 | Outpatient (BNVA) | payer MEDICARE, OTHER, SELFPAY | PROVIDERS: PCP Internal Medicine; Referring Provider Internal Medicine; Visit Provider Orthopaedic Surgery | DX: Z47.1 Aftercare following joint replacement surgery (principal); Z96.641 Presence of right artificial hip joint; T84.89XA Other specified complication of internal orthopedic prosthetic devices, implants and grafts, initial encounter ==

== ENCOUNTER 2018-10-16 10:49 | Outpatient (CLI) | payer MEDICARE, OTHER, SELFPAY ==
--- NOTE | 2018-10-16 10:23 | DI.RAD_ITS ---
SYMPTOM/DIAGNOSIS: F/U RIGHT HIP AND PELVIS: The patient is status post right SHEA. The prosthesis is in excellent position. Surrounding bone intact with no interval change when compared with the postoperative examination of 09/30/18.
== END 2018-10-16 11:09 ==
PROVIDERS: PCP Internal Medicine; Referring Provider Internal Medicine; Visit Provider Orthopaedic Surgery
DX: Z96.641 Presence of right artificial hip joint (principal); Z47.1 Aftercare following joint replacement surgery; I10 Essential (primary) hypertension
CPT/HCPCS: 73502

== ENCOUNTER → 2018-11-13 10:16 | Outpatient (BNVA) | payer MEDICARE, OTHER, SELFPAY | PROVIDERS: PCP Internal Medicine; Referring Provider Internal Medicine; Visit Provider Orthopaedic Surgery | DX: Z47.1 Aftercare following joint replacement surgery (principal); Z96.641 Presence of right artificial hip joint; M16.11 Unilateral primary osteoarthritis, right hip; I10 Essential (primary) hypertension ==

== ENCOUNTER → 2018-12-25 10:10 | Outpatient (BNVA) | payer MEDICARE, OTHER, SELFPAY | PROVIDERS: PCP Internal Medicine; Referring Provider Internal Medicine; Visit Provider Orthopaedic Surgery | DX: Z47.1 Aftercare following joint replacement surgery (principal); Z96.641 Presence of right artificial hip joint; I10 Essential (primary) hypertension ==

== ENCOUNTER 2019-02-05 11:10 | Outpatient (CLI) | payer MEDICARE, OTHER, SELFPAY ==
--- NOTE | 2019-02-05 11:10 | DI.RAD_ITS ---
SYMPTOMS/DIAGNOSIS: S/P SHEA AP PELVIS: Comparison 10/16/18. There are again seen post surgical changes of right total hip arthroplasty. The orthopedic hardware appears in good position. Stable degenerative changes are seen in the left hip. Vascular calcifications are present.
== END 2019-02-05 11:30 ==
PROVIDERS: PCP Internal Medicine; Referring Provider Internal Medicine; Visit Provider Orthopaedic Surgery
DX: M25.551 Pain in right hip (principal); Z96.641 Presence of right artificial hip joint; M16.12 Unilateral primary osteoarthritis, left hip
CPT/HCPCS: 99211; 99213; 72170

== ENCOUNTER → 2019-04-17 10:26 | Outpatient (BNVA) | payer MEDICARE, OTHER, SELFPAY | PROVIDERS: PCP Internal Medicine; Referring Provider Internal Medicine; Visit Provider Orthopaedic Surgery | DX: M25.551 Pain in right hip (principal); I10 Essential (primary) hypertension | CPT/HCPCS: 99213 ==

== ENCOUNTER 2019-04-23 09:48 | Outpatient (CLI) | payer MEDICARE, OTHER, SELFPAY ==
--- NOTE | 2019-04-23 11:02 | DI.MRI_ITS ---
SYMPTOMS/DIAGNOSIS: PAINFUL RIGHT HIP S/P SHEA IN SEPTEMBER 2018 RIGHT HIP MRI: MRI examination of the hip was performed according to the usual protocol. Additional susceptibility reduction sequences were obtained due to the presence of right hip prosthesis. The soft tissues of the pelvis are unremarkable with no evidence of a mass or adenopathy. Total hip joint replacement noted in position on the right. The left hip shows apparent degenerative cartilage thinning and no other significant specific findings. Right hip prosthesis shows no gross evidence of loosening or infection as visualized within the limitations imposed by artifact. CONCLUSION: No specific abnormality identified associated with right hip prosthesis. Please note that the examination is significantly limited by artifact from the metallic prosthesis.
== END 2019-04-23 10:08 ==
PROVIDERS: PCP Internal Medicine; Visit Provider Orthopaedic Surgery
DX: M25.551 Pain in right hip (principal); Z96.641 Presence of right artificial hip joint
CPT/HCPCS: 73721

== ENCOUNTER → 2019-04-29 10:50 | Outpatient (BNVA) | payer MEDICARE, OTHER, SELFPAY | PROVIDERS: PCP Internal Medicine; Referring Provider Internal Medicine; Visit Provider Orthopaedic Surgery | DX: M25.551 Pain in right hip (principal); Z71.2 Person consulting for explanation of examination or test findings; I10 Essential (primary) hypertension | CPT/HCPCS: 99213 ==